=== PATIENT | female | born 1990 | race Hispanic/Latino ===

== ENCOUNTER 2023-05-17 05:50 | Day surgery (SDC) | payer OTHER ==
[2023-05-14 09:42] VITALS: BP 132/71; PULSE 87; RESP 16
[2023-05-17] VITALS (14 sets, daily range): BP systolic 128–145; BP diastolic 71–85; PULSE 80–104; RESP 13–16
[~2023-05-17] VITALS: Ht 157.5 cm; Wt 86.5 kg
[~2023-05-17 05:50] MED LIST: ALPR0.5T8 PO; BUPR-49 PO; IBUP-2784 PO; LISI10TA24 PO; SERT100T PO; [UNRECOGNIZED DRUG - OTHER] PO
[2023-05-17] MEDS ORDERED: LIDOCAINE PF 100MG/5ML (2%) SYRINGE 5ML ONE (07:09)
[2023-05-17] MEDS ORDERED: FENTANYL CITRATE PF 50 MCG/1 ML 2ML VIAL ONE ×2 (07:10→08:11)
[2023-05-17] MEDS ORDERED: PROPOFOL 10 MG/ML 20ML VIAL IV ONE (07:10)
[2023-05-17] MEDS ORDERED: MIDAZOLAM HCL 1 MG/ML 2ML VIAL ONE (07:11)
[2023-05-17] MEDS ORDERED: ROCURONIUM BROMIDE 10MG/1ML 5ML VL ONE (07:11)
[2023-05-17] MEDS ORDERED: PHENYLEPHRINE HCL 10 MG/ML 1ML VIAL IV ONE (07:13)
[2023-05-17] MEDS: LACTATED RINGERS 1000ML 1,000 ML IV ONE (07:17)
[2023-05-17] MEDS ORDERED: OXYMETAZOLINE HCL SPRAY 15 ML BOTTLE ONE (07:25)
[2023-05-17] MEDS ORDERED: LIDOCAINE 1%-EPI 1:100,000 20 ML VIAL ONE (07:25)
[2023-05-17] MEDS ORDERED: BACITRACIN 28.4 GM OINT TP ONE (07:26)
[2023-05-17] MEDS: OXYMETAZOLINE HCL SPRAY 15 ML BOTTLE NS ONE (08:11)
[2023-05-17] MEDS ORDERED: DEXAMETHASONE SOD PHOSPHATE 10MG/ML 1ML VIAL ONE (08:11)
[2023-05-17] MEDS: LIDOCAINE 1%-EPI 1:100,000 20 ML VIAL IJ ONE (08:11)
[2023-05-17] MEDS ORDERED: ONDANSETRON 4MG INJ ONE (08:11)
[2023-05-17] MEDS ORDERED: ALBUTEROL INHALER 90MCG/INH IH ONE (08:14)
[2023-05-17] MEDS ORDERED: GLYCOPYRROLATE 0.2 MG/ML 5 ML VIAL ONE (08:33)
[2023-05-17] MEDS ORDERED: NEOSTIGMINE METHYLSULFATE 1MG/ML IV ONE (08:33)
[2023-05-17] MEDS ORDERED: SUGAMMADEX SODIUM 200 MG/2 ML VIAL IV ONE (08:41)
== END 2023-05-17 10:05 | disposition home or self-care (01) ==
LOC: DAH 05:50
PROVIDERS: ATTEND Otolaryngology
DX: J32.0 Chronic maxillary sinusitis (principal); J34.1 Cyst and mucocele of nose and nasal sinus; I10 Essential (primary) hypertension; F41.9 Anxiety disorder, unspecified; F32.A Depression, unspecified; Z79.899 Other long term (current) drug therapy; Z98.890 Other specified postprocedural states
CPT/HCPCS: 81025; 31276; 31256; 88305; A6260; A4663; J7120; J3010 ×2; J3490 ×4; J1100; J2001; J2250; J2704; J2405; J2710; J2371; A4649 ×2; A4215; A4223; A4222; A4221; A4600